=== PATIENT | male | born 1980 | race Caucasian/White ===

== ENCOUNTER 2017-08-03 07:04 | Emergency (ER) | payer OTHER ==
--- NOTE | 2017-08-03 07:18 | EDPHY ---
H & P Stated Complaint: R hand lac HPI/ROS: CHIEF COMPLAINT: Finger laceration HISTORY OF PRESENT ILLNESS: This is a healthy 37 year old male who cut himself while glass blowing, injuring his right index and long fingers. He was placing a plug in the glass, and it slipped and shattered, avulsing a small area over the DIP joint of his index finger and lacerating the middle finger as well. He is right handed. He is able to bend his fingers. His tetanus shot is up to date. He denies any other trauma or recent illness. REVIEW OF SYSTEMS: A ten point review of systems was performed and is negative with the exception of the items mentioned in the HPI. Past medical history: Asthma Past surgical history: Right ankle surgery. Family history: Noncontributory. Social history: Nonsmoker. No alcohol use. 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 General Appearance: Alert. Vital signs reviewed. Blood pressure 114/106 at triage. Respiratory: Lungs are clear to auscultation; no wheezes, rales, or rhonchi. Cardiovascular: Regular rate and rhythm; no murmur, rub, or gallop. Skin: Warm and dry, no rashes on exposed skin, normal color. Extremities: Right hand: Right index finger 1x1cm divot to dorsal aspect overlying and extending distally from the DIP. Right long finger superficial laceration 1.5x1cm. Extends up to cuticle. No nail bed involvement. Sensory/ motor intact on all fingers. Pulse: 2+ radial pulses bilaterally. Neurological: Alert and oriented. Moving all four extremities easily and equally. Psychiatric: Normal affect. - Personal History Current Tetanus/Diphtheria Vaccine: Yes Current Tetanus Diphtheria and Acellular Pertussis (TDAP): Yes Tetanus Vaccine Date: 2015 - Medical/Surgical History Hx Asthma: Yes Hx Chronic Respiratory Disease: No Hx Diabetes: No Hx Cardiac Disease: No Hx Renal Disease: No Hx Cirrhosis: No Hx Alcoholism: No Hx HIV/AIDS: No Hx Splenectomy or Spleen Trauma: No Other PMH: asthma, R ankle surgery - Social History Smoking Status: Never smoked Constitutional: Initial Vital Signs Temperature (C) 37 C 08/03/17 07:07 Heart Rate 61 08/03/17 07:07 Respiratory Rate 16 08/03/17 07:07 Blood Pressure 114/106 H 08/03/17 07:07 O2 Sat (%) 94 08/03/17 07:07 O2 Delivery Mode Room Air Allergies/Adverse Reactions: No Known Allergies Allergy (Unverified 08/03/17 07:07) Home Medications: Medication Instructions Recorded NK [No Known Home Meds] 08/03/17 Medical Decision Making - Diagnostics Imaging: I viewed and interpreted images myself ED Course/Re-evaluation: 37 year old male presents with a skin avulsion to the right index finger at the DIP and laceration to the right middle finger over the DIP. Plan for x-ray of hand. Plan to clean wound with standard ED protocol. These injuries are not amenable to suturing, as the overlying skin is missing. Coverage cannot be performed by undermining adjacent skin. Skin graft could be performed in future if needed. I discussed importance of maintaining joint mobility with patient. Reviewed x-ray. No fractures identified. No foreign body seen. Plan to consult with Dr. Hilton, hand specialist. 09:[address] Hilton. The patient's hand has been cleaned and dressed. Plan to discharge home in good condition. Follow up and return precautions discussed. He understands he should call Dr. Hilton's office today for an appointment and follow up as soon as possible. He is comfortable with this plan. I subsequently spoke with Dr. Hilton and he will have his office contact the patient to arrange follow up. Departure - Departure Disposition: Home, Routine, Self-Care Clinical Impression: Finger laceration Qualifiers: Encounter type: initial encounter Finger: middle finger Damage to nail status: without damage Foreign body presence: without foreign body Laterality: right Qualified Code(s): S61.212A - Laceration without foreign body of right middle finger without damage to nail, initial encounter Finger avulsion Qualifiers: Encounter type: initial encounter Qualified Code(s): S61.209A - Unspecified open wound of unspecified finger without damage to nail, initial encounter Condition: Good Instructions: Finger Laceration (ED), Skin Avulsion (ED) Additional Instructions: 1. Follow up this week with Dr. Hilton, hand specialist, without fail. Call today for an appointment. 2. Return to the emergency department for inability to move or feel your fingers , increased redness, warmth, or discharge from the wounds, fever, or other worsening of condition. Referrals: Bayron Hilton MD [Medical Doctor] - As per Instructions Report Scribed for: Elda Alvarenga Report Scribed by: Sheree Church Date of Report: 08/03/17 Time of Report: 07:44 Physician Review and Approval Statement: 08/03/17 07:18 Portions of this note were transcribed by the regional medical director. I, Dr. Elda Alvarenga, personally performed the history, physical exam, and medical decision- making; and confirmed the accuracy of the information in the transcribed note.
[2017-08-03 10:13] VITALS: BP 113/79; PULSE 50; RESP 18; TEMP 97.9; O2SAT 95
== END 2017-08-03 10:11 | disposition home or self-care (01) ==
DX: S61.212A Laceration without foreign body of right middle finger without damage to nail, initial encounter (principal); S61.202A Unspecified open wound of right middle finger without damage to nail, initial encounter; J45.909 Unspecified asthma, uncomplicated; W25.XXXA Contact with sharp glass, initial encounter

== ENCOUNTER 2017-08-06 15:51 | Day surgery (SDC) | payer OTHER ==
[2017-08-06 16:24] VITALS: PULSE 58
[2017-08-06] MEDS ORDERED: ceFAZolin 2 GM/SWFI 2 GM/20 ML SYR IVP ONE (16:31)
--- NOTE | 2017-08-06 17:05 | PDHPUP ---
History & Physical Update H&P update statement: This history and physical update is based on an assessment of the patient which was completed after admission or registration (within 24 hours), but prior to the surgery/procedure. H&P update: H&P reviewed & patient examined
[2017-08-06] MEDS ORDERED: LIDOCAINE 2% 5 ML SDV ONE (17:17)
[2017-08-06] MEDS ORDERED: BUPIVACAINE 0.5% 30 ML SDV ONE (17:17)
[2017-08-06] MEDS ORDERED: LIDOCAINE 1% 300 MG/30 ML SDV ONE (18:42)
[2017-08-06] MEDS ORDERED: BACITRACIN ZINC 14.2 GM OINTTUBE TP ONE (19:19)
[2017-08-06 19:54] VITALS: TEMP 97.9; O2SAT 97
[2017-08-06 19:56] VITALS: BP 122/83; RESP 11
--- NOTE | 2017-08-07 18:51 | GOP ---
[f rep st] OPERATIVE REPORT DATE OF OPERATION: 08/06/2017 SURGEON: Bayron Hilton MD PREOPERATIVE DIAGNOSIS: 1. Open wound with partial-thickness skin loss of the long finger dorsally over the distal phalanx. 2. Open wound with open fracture of the distal phalanx and a traumatic arthrotomy of the distal inte rphalangeal joint. This was of the index finger. (The index finger open wound was about 1 x 1 cm. The long finger open wound was 10 mm x 5 mm). POSTOPERATIVE DIAGNOSIS: PROCEDURE PERFORMED: 1. Right index and long finger irrigation and debridement of skin, subcutaneous tissue and bone at t he site of open wound of the long finger and an open wound with open fracture of distal phalanx and e xposed joint of the index finger. 2. Local wound coverage with local tissue rearrangement by way of a rotational flap of the index fin shan. FINDINGS: ESTIMATED BLOOD LOSS: 5 cc. DESCRIPTION OF PROCEDURE: The patient was seen in preoperative holding area. He was given the [facility] tunity to ask questions. All his questions were answered. Consent was signed. The digital block wa s performed by me. The patient was then taken to the operative suite and care was taken to transfer the patient from the [facility] to the operating room table. Care was taken to pad all bony prominences. The right upper extremity prepped and draped in the usual sterile fashion. A glove was then used a s a tourniquet. Began with the incision and drainage, irrigation, debridement portion of the long fi nger. This was just partial-thickness skin loss. This was debrided sharply with a curette until the wound was clean. I then performed irrigation and debridement of the index finger. This wound was 1 x 1 cm, the other wound was 10 mm x 5 mm. Debrided sharply with a curette of the bone, tendon, skin and any other contaminated tissue including subcutaneous tissue. On further examination, the patient had a traumatic arthrotomy and there was exposed distal phalanx. He had avulsed, essentially shaved away with the glass, more than 50% of his terminal tendon. [facility], on preoperative examination he was able to maintain full extension and had no extension lag, so w hat was remaining was functionally working. He also had cut through part of his sterile matrix with exposed nail plate and had completely shaved off his proximal nail fold. The decision was made to perform a rotational type flap. The flap was designed up to about the PIP j oint and the flap was carefully raised, preserving the paratenon over the extensor mechanism. The fl ap was extended to about the mid-lateral line radially. Care was taken to protect the neurovascular bundle. Care was taken to raise the full-thickness flap to preserve vasculature. A small back cut was made to allow more rotation of the flap. With the fingers in full extension the flap reached all the way to the nail plate and the former location of the proximal nail fold and com pletely covered the wound. The preliminary suture was made to check the tension on the flap and then the tourniquet was let down. The sutures were adjusted until there was good perfusion of the flap a nd then the flap was sequentially closed loosely with 4-0 nylon suture. Again, checking perfusion at all times and releasing suture until the flap perfusion was maintained. It was closed loosely over the PIP joint. At the nail fold a chromic suture was used to secure the graft to the nail. After closure of the fla p, again perfusion was assessed and the flap maintained good perfusion with good capillary refill. A sterile dressing was then applied to both the long and index finger. A splint was applied, maintain ing finger in full extension as this will decrease tension on the flap and also protect the extensor mechanism of the DIP joint. After application of the sterile dressing, the patient was then taken to the PACU in stable condition and discharged home in stable condition. INDICATIONS FOR PROCEDURE: This is a 37-year-old male who was seen by me in clinic on the day of earlier in the day. He had sustained his injury a couple of days prior while blowing glass. A piece of glass slid over the top of his fingers, avulsing the tissue as mentioned above. He was seen in the ER, irrigated and sent home for further followup. On examination in clinic I did note that t here was exposed distal phalanx and possible exposed joint with an exposed bone and exposed joint. S oft tissue coverage and I and D to prevent infection were indicated. It was arranged to perform surg elisabet later that day and I discussed the risks and benefits of the surgery with the patient. The risks include infection, osteomyelitis and septic arthritis. There is a significant risk of stiffness, pa rtial flap necrosis or flap loss, nail deformity, need for further operations, damage to surrounding structures including nerves. He understood the risks and wished to proceed. POSTOPERATIVE CONDITION: Stable. POSTOPERATIVE PLAN: The patient will follow up with me on Wednesday in the office for a wound check. H e is to maintain his dressing on at all times until followup. He was given a prescription for Keflex . Of note 2 g of Ancef were given to him prior to our procedure in the OR today. /[id number]/MODL
== END 2017-08-06 20:13 | disposition home or self-care (01) ==
LOC: FSGY 15:51
PROVIDERS: ATTEND Orthopaedic Surgery Hand Surgery
PROC: 0JBJ0ZZ Excision of Right Hand Subcutaneous Tissue and Fascia, Open Approach (ICD-10-PCS; principal; 2017-08-06 15:40)
PROC: 0JXJ0ZB Transfer Right Hand Subcutaneous Tissue and Fascia with Skin and Subcutaneous Tissue, Open Approach (ICD-10-PCS; principal; 2017-08-06 15:40)
PROC: 0PBT0ZZ Excision of Right Finger Phalanx, Open Approach (ICD-10-PCS; principal; 2017-08-06 15:40)
DX: S62.660B Nondisplaced fracture of distal phalanx of right index finger, initial encounter for open fracture (principal); S61.300A Unspecified open wound of right index finger with damage to nail, initial encounter; S61.202A Unspecified open wound of right middle finger without damage to nail, initial encounter; W25.XXXA Contact with sharp glass, initial encounter; Y92.69 Other specified industrial and construction area as the place of occurrence of the external cause; Y99.0 Civilian activity done for income or pay
CPT/HCPCS: J0171; J0690